=== PATIENT | male | born 1985 ===

== ENCOUNTER 2020-01-08 14:27 | Inpatient (IN) ==
[2020-01-08] MEDS ORDERED: Aspirin 81 MG TAB.CHEW PO ONE (14:58)
[2020-01-08 15:34] LABS: Basophils % 0.2 %; Eosinophils # 0.1 K/mcL (0.0-0.6); Eosinophils % 0.4 %; Hematocrit 40.8 % (37.5-50.1); Hemoglobin 12.6 g/dL (12.9-16.9); Immature Granulocytes % 0.3 % (0-4); Lymphocytes # 2.4 K/mcL (0.6-4.6); Lymphocytes % 19.4 %; Mean Corpuscular HGB Conc 30.9 g/dL (31.6-35.5); Mean Corpuscular Hemoglobin 24.4 pg (28.0-33.3); Mean Corpuscular Volume 79.1 fL (83.0-100.0); Mean Platelet Volume 9.8 fL (9.4-12.4); Monocytes % 8.5 %; Neutrophils # 8.6 K/mcL (1.6-8.9); Platelet Count 354 K/mcL (140-400); Red Blood Count 5.16 M/mcL (4.19-5.50); Red Cell Distribution Width 19.2 % (11.5-14.5); Segmented Neutrophils % 71.2 %; White Blood Count 12.1 K/mcL (4.3-11.1)
[2020-01-08 15:38] LABS: INR 1.5; Prothrombin Time 17.4 Seconds (9.4-12.1)
[2020-01-08 15:40] LABS: Activated Partial Thrombo Time 27.1 Seconds (26.0-36.0)
[2020-01-08 16:03] LABS: BUN/Creatinine Ratio 19 (6-26); Blood Urea Nitrogen 24 mg/dL (6-20); Calcium 9.3 mg/dL (8.6-10.3); Carbon Dioxide 26 mEq/L (23-29); Chloride 99 mEq/L (98-107); Glucose 149 mg/dL (70-105); Osmolality,Calculated 287 (280-300); Potassium 3.6 mEq/L (3.5-5.1); Sodium 135 mEq/L (136-145); Troponin I 0.05 ng/mL (< 0.04); eGFR For African Americans > 60 (> 60); eGFR For Non-African Americans > 60 (> 60)
[2020-01-08] MEDS ORDERED: Furosemide 40 MG/4 ML VIAL IVP STA (17:23)
[2020-01-08] MEDS ORDERED: *HR* Promethazine 25 MG/ML VIAL IVP PRN (17:37)
[2020-01-08] MEDS ORDERED: *HR* HYDROcodone/Acet 5/325 mg TABLET PO PRN (17:37)
[2020-01-08] MEDS ORDERED: *HR* OxyCODONE Immed Rel 5 MG TABLET PO PRN (17:37)
[2020-01-08] MEDS ORDERED: Mag Hydrox/Al Hydrox/Simeth 30 ML UDC PO PRN (17:37)
[2020-01-08] MEDS ORDERED: MOM Conc 10 ML UD.LIQ PO PRN (17:37)
[2020-01-08] MEDS ORDERED: Acetaminophen 325 MG TABLET PO PRN (17:37)
[2020-01-08] MEDS ORDERED: Ondansetron 4 MG/2 ML VIAL IVP PRN (17:37)
[2020-01-08] MEDS ORDERED: Naloxone 0.4 MG/ML INJ IVP PRN (17:37)
[2020-01-08] MEDS: *HR* Heparin 5,000 UNIT/ML VIAL SQ SCH (18:58)
[2020-01-08] MEDS: Sacubitril/Valsartan 97/103 MG 1 TAB TABLET PO SCH (20:53)
[2020-01-09 01:55] LABS: Basophils # 0.1 K/mcL (0.0-0.2); Basophils % 0.5 %; Eosinophils # 0.1 K/mcL (0.0-0.6); Eosinophils % 0.8 %; Hematocrit 44.8 % (37.5-50.1); Hemoglobin 13.9 g/dL (12.9-16.9); Immature Granulocytes % 0.4 % (0-4); Lymphocytes % 26.9 %; Mean Corpuscular Hemoglobin 24.9 pg (28.0-33.3); Mean Corpuscular Volume 80.3 fL (83.0-100.0); Mean Platelet Volume 9.7 fL (9.4-12.4); Monocytes % 9.4 %; Neutrophils # 6.9 K/mcL (1.6-8.9); Platelet Count 318 K/mcL (140-400); Red Blood Count 5.58 M/mcL (4.19-5.50); White Blood Count 11.1 K/mcL (4.3-11.1)
[2020-01-09 02:13] LABS: BUN/Creatinine Ratio 19 (6-26); Blood Urea Nitrogen 24 mg/dL (6-20); Calcium 9.6 mg/dL (8.6-10.3); Carbon Dioxide 26 mEq/L (23-29); Chloride 99 mEq/L (98-107); Glucose 106 mg/dL (70-105); Magnesium 1.9 mg/dL (1.6-2.6); Osmolality,Calculated 286 (280-300); Potassium 3.6 mEq/L (3.5-5.1); Sodium 136 mEq/L (136-145); eGFR For African Americans > 60 (> 60); eGFR For Non-African Americans > 60 (> 60)
[2020-01-09] MEDS ORDERED: Benzonatate 100 MG CAPSULE PO PRN ×2 (03:31→07:45)
[2020-01-09] MEDS: *HR* Heparin 5,000 UNIT/ML VIAL SQ SCH ×2 (05:43→16:14)
[2020-01-09] MEDS: Fluticasone Propionate Nasal 50 MCG/SPRAY BOTTLE NS SCH (07:59)
[2020-01-09] MEDS: Aspirin Enteric Coated 81 MG Tablet PO SCH (08:06)
[2020-01-09] MEDS: Famotidine 20 MG TABLET PO SCH ×2 (08:06→22:15)
[2020-01-09] MEDS: Spironolactone 25 MG TABLET PO SCH (08:06)
[2020-01-09] MEDS: Sacubitril/Valsartan 97/103 MG 1 TAB TABLET PO SCH ×2 (08:06→22:15)
[2020-01-09] MEDS: Bumetanide 1 MG/4 ML VIAL IVP SCH ×2 (08:16→16:27)
[2020-01-09] MEDS: Metoprolol XL (24 HR) Succ 50 MG TAB.ER.24H PO SCH (08:36)
[2020-01-09] MEDS ORDERED: Metoprolol XL (24 HR) Succ 25 MG TAB.ER.24H PO SCH (09:00)
[2020-01-09] MEDS: Ipratropium Neb 0.5 MG NEBULIZER IH PRN (12:25)
[2020-01-09 13:59] LABS: VBG HCO3 25 mEq/L (21-27); VBG PCO2 37 mmHg (41-51); VBG PH 7.44 pH Units (7.32-7.42); VBG PO2 95 mmHg (25-50)
[2020-01-09 15:53] LABS: Adenovirus Not Detected (Not Detect); Bordetella Pertussis Not Detected (Not Detect); Chlamydophila pneumoniae Not Detected (Not Detect); Coronavirus 229E Not Detected (Not Detect); Coronavirus HKU1 Not Detected (Not Detect); Coronavirus NL63 Not Detected (Not Detect); Coronavirus OC43 Not Detected (Not Detect); Human Metapneumovirus Not Detected (Not Detect); Human Rhinovirus/Enterovirus Not Detected (Not Detect); Influenza A Subtype 2009 H1 Not Detected (Not Detect); Influenza B Not Detected (Not Detect); Mycoplasma pneumoniae Not Detected (Not Detect); Parainfluenza Virus 1 Not Detected (Not Detect); Parainfluenza Virus 2 Not Detected (Not Detect); Parainfluenza Virus 3 Not Detected (Not Detect); Parainfluenza Virus 4 Not Detected (Not Detect); Respiratory Syncytial Virus Not Detected (Not Detect)
[2020-01-10] MEDS: *HR* Heparin 5,000 UNIT/ML VIAL SQ SCH ×3 (05:39→17:38)
[2020-01-10] MEDS: Bumetanide 1 MG/4 ML VIAL IVP SCH (08:29)
[2020-01-10] MEDS: Metoprolol XL (24 HR) Succ 50 MG TAB.ER.24H PO SCH (08:29)
[2020-01-10] MEDS: Aspirin Enteric Coated 81 MG Tablet PO SCH (08:29)
[2020-01-10] MEDS: Famotidine 20 MG TABLET PO SCH ×2 (08:29→22:19)
[2020-01-10] MEDS: Sacubitril/Valsartan 97/103 MG 1 TAB TABLET PO SCH (08:29)
[2020-01-10] MEDS: Spironolactone 25 MG TABLET PO SCH (08:30)
[2020-01-10 08:58] LABS: BUN/Creatinine Ratio 20 (6-26); Blood Urea Nitrogen 28 mg/dL (6-20); Calcium 9.5 mg/dL (8.6-10.3); Carbon Dioxide 25 mEq/L (23-29); Chloride 97 mEq/L (98-107); Glucose 113 mg/dL (70-105); Magnesium 2.1 mg/dL (1.6-2.6); Osmolality,Calculated 276 (280-300); Potassium 4.5 mEq/L (3.5-5.1); Sodium 130 mEq/L (136-145); eGFR For African Americans > 60 (> 60); eGFR For Non-African Americans 58 (> 60)
[2020-01-10] MEDS: Fluticasone Propionate Nasal 50 MCG/SPRAY BOTTLE NS SCH (09:35)
[2020-01-10] MEDS ORDERED: GuaiFENesin Liq 200 MG/10 ML UDC PO PRN (14:54)
[2020-01-10] MEDS ORDERED: Menthol 9.1 MG LOZENGE PO PRN (15:16)
[2020-01-10] MEDS: Ipratropium Neb 0.5 MG NEBULIZER IH PRN (15:28)
[2020-01-10] MEDS ORDERED: Azithromycin 500 MG in 0.9 % Sodium Chloride 250 ML IVPB SCH (17:00)
[2020-01-10] MEDS ORDERED: cefTRIAXone 2,000 MG in Water for inj. (sterile) 20 ML IVP SCH (19:00)
[2020-01-10] MEDS ORDERED: Sacubitril/Valsartan 97/103 MG 1 TAB TABLET PO SCH (21:00)
[2020-01-11] MEDS: *HR* Heparin 5,000 UNIT/ML VIAL SQ SCH ×2 (05:25→16:41)
[2020-01-11 07:04] LABS: BUN/Creatinine Ratio 22 (6-26); Blood Urea Nitrogen 35 mg/dL (6-20); Calcium 9.5 mg/dL (8.6-10.3); Carbon Dioxide 24 mEq/L (23-29); Chloride 97 mEq/L (98-107); Ferritin 65 ng/mL (20-250); Glucose 117 mg/dL (70-105); Lactate Dehydrogenase 535 Units/L (140-271); Osmolality,Calculated 283 (280-300); Potassium 4.5 mEq/L (3.5-5.1); Sodium 132 mEq/L (136-145); eGFR For African Americans > 60 (> 60); eGFR For Non-African Americans 50 (> 60)
[2020-01-11 08:29] LABS: C-Reactive Protein 21 mg/L (Less than 10)
[2020-01-11] MEDS ORDERED: Sacubitril/Valsartan 97/103 MG 1 TAB TABLET PO SCH (09:00)
[2020-01-11] MEDS ORDERED: cefTRIAXone 1,000 MG in Water for inj. (sterile) 10 ML IVPB SCH (09:00)
[2020-01-11 09:53] LABS: Immature Granulocytes % 0.3 % (0-4); Mean Corpuscular Hemoglobin 24.3 pg (28.0-33.3)
[2020-01-11 09:55] LABS: Basophils % 0.3 %; Eosinophils # 0.1 K/mcL (0.0-0.6); Eosinophils % 0.6 %; Hematocrit 41.9 % (37.5-50.1); Immature Platelets 3.2 % (1.1-6.1); Lymphocytes % 25.1 %; Mean Corpuscular Volume 78.3 fL (83.0-100.0); Monocytes # 1.5 K/mcL (0.0-1.3); Platelet Count 310 K/mcL (140-400); Red Blood Count 5.35 M/mcL (4.19-5.50); Red Cell Distribution Width 19.6 % (11.5-14.5); Segmented Neutrophils % 63.7 %; White Blood Count 14.5 K/mcL (4.3-11.1)
[2020-01-11 09:57] LABS: Lymphocytes # 3.6 K/mcL (0.6-4.6); Neutrophils # 9.2 K/mcL (1.6-8.9)
[2020-01-11] MEDS ORDERED: CefTRIAXone 1,000 MG VIAL IM SCH (10:00)
[2020-01-11] MEDS ORDERED: cefTRIAXone 1,000 MG in Water for inj. (sterile) 10 ML IM SCH (10:00)
[2020-01-11] MEDS ORDERED: [UNRECOGNIZED DRUG - OTHER] MC SCH (10:15)
[2020-01-11] MEDS ORDERED: WATER FOR INJ MC SCH (10:15)
[2020-01-11] MEDS: Aspirin Enteric Coated 81 MG Tablet PO SCH (10:36)
[2020-01-11] MEDS: Sacubitril/Valsartan 24/26 MG 1 TABLET PO SCH ×2 (10:36→20:43)
[2020-01-11] MEDS: Metoprolol XL (24 HR) Succ 50 MG TAB.ER.24H PO SCH (10:36)
[2020-01-11] MEDS: Famotidine 20 MG TABLET PO SCH ×2 (10:37→20:42)
[2020-01-11] MEDS: Fluticasone Propionate Nasal 50 MCG/SPRAY BOTTLE NS SCH (15:08)
[2020-01-11] MEDS: GuaiFENesin/Codeine Oral Soln 5 ML UDC PO PRN (20:41)
[2020-01-12 02:51] LABS: Hematocrit 43.4 % (37.5-50.1); Hemoglobin 13.3 g/dL (12.9-16.9); Mean Corpuscular HGB Conc 30.6 g/dL (31.6-35.5); Mean Corpuscular Hemoglobin 24.3 pg (28.0-33.3); Mean Corpuscular Volume 79.3 fL (83.0-100.0); Mean Platelet Volume 10.4 fL (9.4-12.4); Platelet Count 380 K/mcL (140-400); Red Blood Count 5.47 M/mcL (4.19-5.50); Red Cell Distribution Width 19.8 % (11.5-14.5); White Blood Count 12.4 K/mcL (4.3-11.1)
[2020-01-12 03:11] LABS: BUN/Creatinine Ratio 23 (6-26); Blood Urea Nitrogen 36 mg/dL (6-20); Calcium 9.5 mg/dL (8.6-10.3); Carbon Dioxide 21 mEq/L (23-29); Chloride 94 mEq/L (98-107); Glucose 126 mg/dL (70-105); Magnesium 2.3 mg/dL (1.6-2.6); Osmolality,Calculated 272 (280-300); Potassium 4.7 mEq/L (3.5-5.1); Sodium 126 mEq/L (136-145); eGFR For African Americans > 60 (> 60); eGFR For Non-African Americans 51 (> 60)
[2020-01-12 03:14] LABS: Troponin I 0.03 ng/mL (< 0.04)
[2020-01-12] MEDS: *HR* Heparin 5,000 UNIT/ML VIAL SQ SCH ×2 (06:09→17:16)
[2020-01-12] MEDS: Aspirin Enteric Coated 81 MG Tablet PO SCH (08:19)
[2020-01-12] MEDS: Metoprolol XL (24 HR) Succ 50 MG TAB.ER.24H PO SCH (08:19)
[2020-01-12] MEDS: Azithromycin 250 MG TABLET PO SCH (08:19)
[2020-01-12] MEDS: Sacubitril/Valsartan 24/26 MG 1 TABLET PO SCH ×2 (08:19→20:37)
[2020-01-12] MEDS: Famotidine 20 MG TABLET PO SCH ×2 (08:20→20:37)
[2020-01-12] MEDS: Fluticasone Propionate Nasal 50 MCG/SPRAY BOTTLE NS SCH (08:20)
[2020-01-12 08:57] LABS: Bilirubin,Urine Negative (Negative); Blood,Urine Negative (Negative); Clarity,Urine Clear (Clear); Color,Urine Dark Yellow (Yellow); Glucose,Urine (UA) Normal (Normal); Ketones,Urine Negative (Negative); Leukocyte Esterase,Urine Negative (Negative); Nitrite,Urine Negative (Negative); PH,Urine 5.5 pH Units (5.0-8.0); Protein,Urine Trace mg/dL (Neg-Trace); Specific Gravity,Urine 1.022 (1.010-1.025); Urobilinogen,Urine Normal (Normal)
[2020-01-12] MEDS: cefTRIAXone 1,000 MG in Water for inj. (sterile) 10 ML IVP SCH (12:34)
[2020-01-12] MEDS: GuaiFENesin/Codeine Oral Soln 5 ML UDC PO PRN (15:05)
[2020-01-13] MEDS: *HR* Heparin 5,000 UNIT/ML VIAL SQ SCH (04:50)
[2020-01-13 04:54] LABS: Hematocrit 44.8 % (37.5-50.1); Hemoglobin 13.9 g/dL (12.9-16.9); Mean Corpuscular Hemoglobin 24.2 pg (28.0-33.3); Mean Platelet Volume 10.3 fL (9.4-12.4); Platelet Count 320 K/mcL (140-400); Red Blood Count 5.74 M/mcL (4.19-5.50); Red Cell Distribution Width 20.3 % (11.5-14.5); White Blood Count 11.4 K/mcL (4.3-11.1)
[2020-01-13 05:14] LABS: BUN/Creatinine Ratio 24 (6-26); Blood Urea Nitrogen 34 mg/dL (6-20); Calcium 9.7 mg/dL (8.6-10.3); Carbon Dioxide 26 mEq/L (23-29); Chloride 95 mEq/L (98-107); Glucose 108 mg/dL (70-105); Magnesium 2.4 mg/dL (1.6-2.6); Osmolality,Calculated 276 (280-300); Sodium 129 mEq/L (136-145); eGFR For African Americans > 60 (> 60); eGFR For Non-African Americans 56 (> 60)
[2020-01-13 06:41] VITALS: BP 134/84
[2020-01-13] MEDS: cefTRIAXone 1,000 MG in Water for inj. (sterile) 10 ML IVP SCH (08:37)
[2020-01-13] MEDS: Azithromycin 250 MG TABLET PO SCH (08:38)
[2020-01-13] MEDS: Aspirin Enteric Coated 81 MG Tablet PO SCH (08:38)
[2020-01-13] MEDS: Famotidine 20 MG TABLET PO SCH (08:38)
[2020-01-13] MEDS: Sacubitril/Valsartan 24/26 MG 1 TABLET PO SCH (08:38)
[2020-01-13] MEDS: Metoprolol XL (24 HR) Succ 50 MG TAB.ER.24H PO SCH (08:38)
[2020-01-13] MEDS: Fluticasone Propionate Nasal 50 MCG/SPRAY BOTTLE NS SCH (08:42)
== END 2020-01-13 09:37 | disposition home or self-care (01) | DRG 280 ==
LOC: 2ANU 14:27 → EMEROOARM 14:27 → SUATTDRO 17:56 → 2ANU 18:19 → SUATTDRO 01-10 12:01 → 2NNU 01-10 21:04 → 3ANU 01-12 20:19
PROVIDERS: ADMIT Internal Medicine; ATTEND Internal Medicine